=== PATIENT | female | born 1955 | race Caucasian/White ===

== ENCOUNTER 2017-02-02 07:47 | Day surgery (SDC) | payer BC ==
[~2017-02-02] VITALS: Ht 167.6 cm; Wt 117.9 kg
[~2017-02-02 07:47] MED LIST: BENADRYL25 MG PO; CELECOXIB200 MG PO; COUMADIN1 MG PO; CYMBALTA30 MG PO; FERROUS SULFAT325 MG PO; MOTRIN IB200 MG PO; MOTRIN400 MG PO; OXYCODONE HCL5 MG PO; SENNA-TIME S T1 EACH PO; TYLENOL EXTRA500 MG PO
[2017-02-02 08:28] VITALS: BP 135/70
[2017-02-02] MEDS ORDERED: MOTRIN800 MG PO (10:14)
[2017-02-02] MEDS ORDERED: PERCOCET 7.51 TABLET PO (10:14)
[2017-02-02 11:12] VITALS: BP 146/86
[2017-02-02 11:52] VITALS: BP 134/80
== END 2017-02-02 12:05 | disposition home or self-care (01) ==
LOC: SDC 07:47
PROC: 0UDB8ZX Extraction of Endometrium, Via Natural or Artificial Opening Endoscopic, Diagnostic (ICD-10-PCS; principal; 2017-02-02)
DX: N84.0 Polyp of corpus uteri (principal); N95.0 Postmenopausal bleeding; N95.2 Postmenopausal atrophic vaginitis; E66.01 Morbid (severe) obesity due to excess calories; Z68.41 Body mass index [BMI] 40.0-44.9, adult; F32.9 Major depressive disorder, single episode, unspecified; Z87.891 Personal history of nicotine dependence; Z96.659 Presence of unspecified artificial knee joint; Z82.49 Family history of ischemic heart disease and other diseases of the circulatory system; Z88.8 Allergy status to other drugs, medicaments and biological substances
CPT/HCPCS: 88305; J1100; J1885; J2250; J2405; J3010